=== PATIENT | female | born 1960 | race Asian ===

== ENCOUNTER 2023-11-20 14:35 | Emergency (ER) | payer OTHER, SELFPAY ==
[2023-11-20 14:40] VITALS: BP 129/73
--- NOTE | 2023-11-20 15:11 | ED.GENMED ---
History of Present Illness
General
Chief Complaint: Musculo-Skeletal Complaint
Source: patient and family
Time Seen by Provider: 11/20/23 14:49
Travel History
Have you had any contact with someone who has COVID-19?: No
Do you have any symptoms of coronavirus? Fever > 100 degrees, chills, cough, shortness of breath, sore throat, loss of taste or smell, muscle aches, or headache?: No
History of Present Illness
History of Present Illness:
63-year-old female presenting to the emergency department for evaluation after an accidental slip and fall with right wrist injury. Patient went to a local urgent care and was told she had an ulnar fracture and that she should come to the emergency
department for further evaluation with concern that she may need surgery. Patient made an appointment for orthopedics this coming Thursday. Did not receive anything for pain at the urgent care or prior to arrival. No other injuries sustained.
Past History
Past History
ED Past Medical History: None
ED Past Surgical History: Other
Social History
Tobacco: Non-smoker
Alcohol: None
Drug: None
Personal:
Living: with family
Review of Systems
Review of Systems
All Other Systems: ROS reviewed and negative except as documented in HPI and ROS
Phy Exam
Physical Exam
Physical Exam:
GENERAL: Alert , in no apparent distress
EYE: conjunctiva clear
Head: Normocephalic atraumatic
NECK: Supple,
ENT: mmm.
LUNGS: no acute respiratory distress
NEUROLOGICAL: Alert and oriented
SKIN: Warm and dry, skin intact.
MUSCULOSKELETAL: Right upper extremity: Velcro splint in place to the right upper extremity. This was removed and revealed deformity with soft tissue swelling of the distal radius and ulna with tenderness over both of these. Easily palpable radial
pulse. Cap refill less than 2 seconds. Sensation grossly intact. There is no mid forearm or proximal forearm tenderness, humeral tenderness or shoulder tenderness.
PSYCH: Normal and appropriate interaction.
Scores
Heart Failure Risk
Heart Failure Risk Score: Not Applicable
Heart Score for Chest Pain Patients
STEMI patient?: Not applicable
Withdrawal Assessment of Alcohol
Withdrawal Assessment Completed?: Not applicable
Course
Orders/Labs/Results
Orders:
Orders
11/20/23 14:59
CR Wrist - Right Min 3 Views Urgent
Comment:
Reason For Exam: fall, pain
11/20/23 15:22
Ibuprofen [Motrin] 600 mg PO NOW STA
Oxycodone/Acetaminophen [Percocet 5/325] 1 tablet PO NOW STA
Vital Signs
Initial and Last Documented VS:
Initial Vital Signs
Temp Pulse Resp BP Pulse Ox
98.3 F 84 16 129/73 98
11/20/23 14:40 11/20/23 14:40 11/20/23 14:40 11/20/23 14:40 11/20/23 14:40
Last Documented Vital Signs
Temp Pulse Resp BP Pulse Ox
98.3 F 84 16 129/73 98
11/20/23 14:40 11/20/23 14:40 11/20/23 14:40 11/20/23 14:40 11/20/23 14:40
Procedures
Splinting/Sling Placement
Right Wrist:
Procedure completed by: Gwendolyn
Pre-splint extermity exam: neurovascular intact
Type of splint: sugar-tong
Splint material: other (3in orthoglass)
Splint checked by provider?: Yes
Normal distal neurovascular exam?: Yes
MDM/Problems Addressed
MDM/Problems Addressed:
Patient presenting to the emergency department for evaluation after reported ulnar fracture. Unfortunately the x-rays from the urgent care were unable to be visualized we had to reobtain x-rays here. There is a distal radius fracture with
intra-articular extension as well as an ulnar styloid fracture. Patient was placed in a sugar-tong splint. Provided with a sling. Pain control with Motrin and Percocet. Prescription for these provided. Patient will follow-up with her
orthopedist as scheduled.
*Radiology
Radiology exam reviewed: preliminary read by ED provider (distal radius fracture with ulnar styloid fx)
*Pulse Oximetry
Patient hypoxic: no
*Critical Care Note
Total Time (30-74mins, 75-104mins- exclusive of procedures): Not Applicable
ED Attending Note
-
Portions of this chart may have been created with voice recognition software.� Occasional wrong word or��sound alike� substitutions may have occurred due to the inherent limitations of voice recognition software.
Discharge Plan
Departure
Patient Disposition: Home (Routine Discharge)
Date of Disposition: 11/20/23
Time of Disposition: 15:11
Patient with high blood pressure during this ER visit?: No
Discharge Problem:
Distal radial fracture, Fracture of right ulnar styloid
Instructions: Wrist Fracture (DC)
Prescriptions:
New
oxycodone-acetaminophen [Percocet] 5-325 mg tablet
1 tab PO Q6HPRN PRN (Reason: pain) Qty: 8 0RF
Interventions
Interventions:
*Risk Screen - Suicide Last Done: 11/20/23 14:40
*General Assessment Last Done: 11/20/23 14:40
*Neglect/Abuse Screening Last Done: 11/20/23 14:40
ED- Fall Risk Assessment Last Done: 11/20/23 15:57
*ED COVID-19 Vaccine History Last Done: 11/20/23 15:57
*Nursing Disposition Last Done: 11/20/23 15:57
ED-Musculoskeletal Assessment Last Done: 11/20/23 15:56
Discharge Date and Time
Discharge Date/Time: 11/20/23 15:57
[2023-11-20] MEDS: MOTRIN 600 MG PO (15:32)
[2023-11-20] MEDS: PERCOCET 5/325 1 TABLET PO (15:33)
== END 2023-11-20 15:57 | disposition home or self-care (01) ==
LOC: EMR 14:35
PROVIDERS: EMERGENCY PHYSICIAN Emergency Medicine
DX: S52.571A Other intraarticular fracture of lower end of right radius, initial encounter for closed fracture (principal); S52.611A Displaced fracture of right ulna styloid process, initial encounter for closed fracture; W01.0XXA Fall on same level from slipping, tripping and stumbling without subsequent striking against object, initial encounter
CPT/HCPCS: 99283; 29125; 73110